=== PATIENT | male | born 1985 | race Caucasian/White ===

== ENCOUNTER → 2019-10-13 11:52 | Day surgery (SDC) | payer OTHER ==
[~2019-10-13 11:52] MED LIST: Acetaminophen TAB* 325 MG ONE; Acetaminophen TAB* 325 MG PO ONE; Buffered Lidocaine 1% SYRIN* 1 ML/SYRINGE INTRADERM ONE; Bupivacaine 0.25% EPI 200,000* 30 ML SDV ONE; Dexamethasone IV* 4 MG/ML 1 ML (4 MG) ONE; DiMENhydriNATE IV* 50 MG/ML VIAL IV PUSH PRN; DiMENhydriNATE IV* 50 MG/ML VIAL ONE; Famotidine IV* 10 MG/ML 2 ML (20 mg) IV ONE; Famotidine IV* 10 MG/ML 2 ML (20 mg) ONE; Gabapentin CAP(*) 400 MG PO ONE; HYDROmorphone INJ1* 1 MG/ML SYRINGE ONE; Ketorolac INJ* 30 MG/ML 1 ML VIAL ONE; Lactated Ringers 1000 ML Bag* 1,000 ML IV SCH; Metoclopramide IV* 5 MG/ML 2 ML VIAL ONE; Mineral Oil Sterile, TOPICAL* 25 ML BTL ONE; Naloxone* 0.4 MG/ML 1 ML VIAL IV PRN; Ondansetron INJ* 2 MG/ML VIAL ONE; Propofol* 10 MG/ML 20 ML BTL ONE; ceFAZolin 2 GM PREMIX in ORs 2 GM/50 ML BAG ONE; fentaNYL* 50 MCG/ML 2 ML VIAL (100 MCG VIAL) ONE; oxyCODONE TAB* 5 MG TAB PO PRN
[2019-10-13] MEDS: HYDROmorphone INJ1* 1 MG/ML SYRINGE IV PRN ×2 (18:49→18:53)
[2019-10-13 20:05] VITALS: BP 143/87
--- NOTE | 2019-10-14 23:33 | OP ---
OPERATIVE REPORT: DATE OF OPERATION: 10/13/18 DATE OF : 81 SURGEON: Alonso Will MD STAFF [employer] DEF[employer] OFFICER: KAYODE Browne A physician assistant art director was required for the length of the procedure for assistance with patient positioning, instrumentation, knee manipulation, retraction, and closure. ANESTHESIOLOGIST: Dr. Geronimo Martinez. ANESTHESIA: General anesthesia, local anesthesia consisting of 30 cc of Marcaine 0.25% with epinephrine. PRE-OP DIAGNOSIS: Left knee anterior cruciate ligament tear. POST-OP DIAGNOSIS: Left knee anterior cruciate ligament tear. OPERATIVE PROCEDURE: Left knee arthroscopic anterior cruciate ligament reconstruction with yhyd-pbnnbnhr-pijf autograft. ANTIBIOTICS: Ancef 2 g IV. IV FLUIDS: See anesthesia note. KDNX-HX-[id number] TIME: 149 minutes. TOURNIQUET TIME: 140 minutes at 300 mmHg, left thigh tourniquet. Note that there was a 15 to 20 minute tourniquet holiday during this period which made me comfortable exceeding 120 minutes. SPECIMEN: None. IMPLANTS: Arthrex interference Bio[employer]posite screws, 8 x 20 mm in the femur and 9 x 30 mm in the tibia. We collected bone graft, autograft, using a collection device attached to our salina and I used that to fill in the bone harvest sites on the patellar and tibia. COMPLICATIONS: None. ESTIMATED BLOOD LOSS: Minimal. INDICATIONS FOR PROCEDURE: The patient is a 33-year-old man, PhD student at [employer], who sustained on 08/13/19 a left knee injury diagnosed as a full- thickness ACL tear by MRI. Exam and history were consistent with the diagnosis. The patient opted for surgery. We discussed doing operative and nonoperative management. We discussed the variety of graft options. The patient opted for an autograft, either hhht-opmldrfl-yyna or hamstring. The patient was leaning more towards the bone- patellar-bone autograft and we solidified that decision the day of the procedure. DESCRIPTION OF PROCEDURE: In preoperative holding, the patient signed a written consent. Operative extremity was marked in the preoperative holding. The patient was taken to the operating room and placed supine on the operating room table. The patient was sedated and intubated. I placed a blanket bump under the left hemipelvis. I placed a tourniquet on the left proximal thigh. Left lower extremity was prepped and draped. Surgical time out, formally was performed. Esmarch was applied and tourniquet was elevated. I made standard anterolateral knee arthroscopy portal using standard technique. I commenced diagnostic arthroscopy. There were some synovitis at the patellar femoral compartment. Articular cartilage in that compartment was pristine. Dropped down to the medial compartment. No meniscal tear. No articular cartilage pathology. No articular cartilage thinning. Lateral compartment showed the same, no meniscal tear and no articular cartilage injury. Noted in the intracondylar notch a clear tearing to the proximal ACL. Established anteromedial portal under direct visualization. I used a probe first to probe the proximal aspect of the ACL. The ACL was not torn, was noted to be particularly robust, and very thick. However, proximally it appeared to be almost fully torn. It was scarred into place somewhat. Just moving that probe back and forth, I easily moved through that scar tissue and confirmed the diagnosis. I then brought an arthroscopic shaver in that was used to release the scar tissue and confirmed a full-thickness tear in the ACL. At this point, I decided to move forward with the surgical procedure as planned. Removed knee arthroscopy equipment. Set up the [facility] knee positioner. Performed anterior midline skin incision. I dissected down to paratenon. Incised that. I measured the patellar tendon as 35 mm wide across. Used double-blade knife and cut a 10 mm graft. Cut bone blocks with an oscillating saw, patellar, and tibial tubercle. My bone block proximally was 23 mm and distally was 32 mm. Took autograft to the back table for preparation. We closed the patellar tendon with Ethibond 0 sutures, buried [id number] stitches along the length of the patellar tendon. The tourniquet was dropped, hence the tourniquet holiday. At the back table, contoured the bone blocks. Removed some fat from the patellar tendon. Placed drill holes and placed fiberwire #5 suture, 1 proximally and 2 distally. Left then on the back table under tension and kept moist. I returned to the knee. Applied Esmarch and tourniquet was elevated. Established new anterolateral portal. Performed notch plasty, minimal. I used awvpbx-keq-ninn guide with the knee in hyperflexion to place my Beath pin for the femoral tunnel. I had used anatomy with the clock face at 90 degrees of flexion in the proximal aspect of the posterior articular cartilage. Drilled my femoral tunnel for an accessory anteromedial portal. Removed instruments and flexed the knee to 90 degrees. Set my tibial pin guide to 55 degrees and placed my pin with a pin to exit at the level of the posterior aspect at the anterior horn of the lateral meniscus. I drilled a tibial tunnel 10 mm. Collected bone shavings from all the drilling to be used later in the case. I used a passing suture to pass my graft. Placed a nitinol wire and then tapped and then placed an interference screw 8 x 20 mm in the femur. The purchase was excellent. I then fully extended the knee. While applying a posterior drawer maneuver, applied interference screw in the tibia after having tapped. Again the purchase was excellent. Exam in the knee. No laxity, whatsoever, with Camilo's or anterior drawer. Stuck the arthroscope in the knee, took some pictures. Probed and graft was taut. I closed fascia and periosteum over the tibial tunnel with [id number]-bb-[id number] stitches using Vicryl 0 suture. I closed the paratenon with running stitches using Vicryl 2- 0 suture. Prior to closing the paratenon, I packed in bone graft, autograft into the patellar and tibial bone defects. I used bone fragments from the contouring of the bone blocks as well as from the receptacle used while drilling my tunnels. I closed the subcutaneous tissue of the longitudinal incision with buried simple stitches using Vicryl 2-0 suture. I closed the longitudinal skin incision with a running stitch using nylon 3-0 suture. The separate skin arthroscopy portals were closed with [id number] and 12 stitches using nylon 3-0 suture. Local anesthesia was applied to the subcutaneous about the skin incisions. Xeroform, 4x4s, ABDs, sterile Webril, Darryl bandage from foot to groin. Cooling unit. Knee brace locked in extension. The patient was awakened and extubated and transferred to the PACU. DISPOSITION: Wound care instructions provided. Percocet as needed for pain control, Keflex 3 times a day for 3 days for infection prophylaxis, and aspirin b.i.d. x2 weeks for DVT prophylaxis. The patient will follow up with me in 10 to 14 days in clinic. The patient will start physical therapy immediately according to my protocol. [id number]/[facility] #: [id number] [facility] HOSPITALChyna
== END | disposition home or self-care (01) ==
LOC: OR 11:52
PROVIDERS: ATTEND Orthopaedic Surgery
DX: S83.512A Sprain of anterior cruciate ligament of left knee, initial encounter (principal); X50.0XXA Overexertion from strenuous movement or load, initial encounter; Y93.67 Activity, basketball; Y92.310 Basketball court as the place of occurrence of the external cause
CPT/HCPCS: A9270-GY; C1713; C1776; J0690; J1100; J1170; J1240; J1885; J2405; J2704; J2765; J3010